=== PATIENT | female | born 1985 | race Caucasian/White ===

== ENCOUNTER → 2016-05-13 | Outpatient (CLI) | payer OTHER | END | disposition home or self-care (01) | LOC: C.PAPS 17:15 | PROVIDERS: ATTEND Obstetrics & Gynecology | DX: Z34.81 Encounter for supervision of other normal pregnancy, first trimester (principal) ==

== ENCOUNTER → 2016-05-13 | Outpatient (CLI) | payer OTHER ==
[2016-05-17 15:12] LABS: CHLAMYDIA TRACH RNA*** NOT DETECTED (NOT DETECTED); GC (NEIS GONORRHOEAE)RNA** NOT DETECTED (NOT DETECTED)
== END | disposition home or self-care (01) ==
LOC: C.LABSPEC 17:09
PROVIDERS: ATTEND Obstetrics & Gynecology
DX: Z34.81 Encounter for supervision of other normal pregnancy, first trimester (principal)

== ENCOUNTER → 2016-06-23 | Outpatient (CLI) | payer OTHER ==
[~2016-06-23] MED LIST: ACET-1256 PO; DOXY100C PO; LANS30CA12 PO; MTR600X PO; OXYC-57 PO; PRED20TA PO; PRED50TA PO; PRENTAB26 PO
[2016-06-23 18:18] LABS: URINE APPEARANCE CLEAR (CLEAR); URINE BILIRUBIN NEG (NEG); URINE COLOR YELLOW; URINE NITRITE NEG (NEG); URINE PH 7.5 (4.5-7.5); URINE SPECIFIC GRAVITY 1.026 (1.000-1.030); UROBILINOGEN NEG (NEG)
[2016-06-23 18:25] LABS: MANUAL MICROSCOPIC REQUIRED? NO; REVIEW REQ? NO
== END | disposition home or self-care (01) ==
LOC: C.LABSPEC 17:30
PROVIDERS: ATTEND Obstetrics & Gynecology
DX: Z34.81 Encounter for supervision of other normal pregnancy, first trimester (principal); R32 Unspecified urinary incontinence

== ENCOUNTER → 2016-08-05 | Outpatient (CLI) | payer OTHER ==
[2016-08-05 16:40] LABS: BASO % 0.3 %; BASO ABS # 0.03 K/uL (0-0.2); COMPLETE YES; EOS % 2.8 %; HEMATOCRIT 36.3 % (37-47); IG% 1.2 %; LYMPH % 15.8 %; MEAN CELL VOLUME 89.9 fL (80-100); MEAN CORPUSCULAR HEMOGLOBIN 29.5 pg (25-34); MEAN CORPUSCULAR HGB CONC 32.8 g/dl (32-36); MEAN PLATELET VOLUME 9.1 fL (7.4-10.4); MONO % 4.8 %; NEUT % 75.1 %; PLATELET COUNT 288 K/uL (130-400); RED BLOOD COUNT 4.04 M/uL (4.2-5.4); WHITE BLOOD COUNT 11.99 K/uL (4.8-10.8)
== END | disposition home or self-care (01) ==
LOC: C.LAB1850 15:41
PROVIDERS: ATTEND Obstetrics & Gynecology
DX: Z34.90 Encounter for supervision of normal pregnancy, unspecified, unspecified trimester (principal)

== ENCOUNTER → 2016-09-30 | Outpatient (CLI) | payer OTHER ==
[2016-09-30 15:33] LABS: HEMATOCRIT 35.8 % (37-47)
[2016-09-30 15:42] LABS: GTGD 50 Grams
[2016-09-30 16:19] LABS: URINE APPEARANCE CLOUDY (CLEAR); URINE BILIRUBIN NEG (NEG); URINE COLOR YELLOW; URINE EPITHELIAL CELL AUTO >30 /lpf (0-5); URINE NITRITE NEG (NEG); URINE PH >= 9.0 (4.5-7.5); URINE SPECIFIC GRAVITY 1.024 (1.000-1.030); UROBILINOGEN NEG (NEG)
[2016-09-30 16:22] LABS: MANUAL MICROSCOPIC REQUIRED? NO; REVIEW REQ? YES
== END | disposition home or self-care (01) ==
LOC: C.LAB1850 14:18
PROVIDERS: ATTEND Obstetrics & Gynecology
DX: Z34.90 Encounter for supervision of normal pregnancy, unspecified, unspecified trimester (principal)

== ENCOUNTER → 2016-11-25 | Outpatient (CLI) | payer OTHER | END | disposition home or self-care (01) | LOC: C.LABSPEC 16:14 | PROVIDERS: ATTEND Obstetrics & Gynecology | DX: Z34.03 Encounter for supervision of normal first pregnancy, third trimester (principal) ==

== ENCOUNTER 2016-12-31 04:19 | Inpatient (IN) | payer OTHER ==
[~2016-12-31] VITALS: Ht 157.5 cm; Wt 90.9 kg
[2016-12-31] MEDS ORDERED: LACTATED RINGER'S 1000ML 1,000 ML IV PRN (05:20)
[2016-12-31 05:56] LABS: HEMATOCRIT 34.8 % (37-47); MEAN CELL VOLUME 85.1 fL (80-100); MEAN CORPUSCULAR HEMOGLOBIN 28.4 pg (25-34); MEAN CORPUSCULAR HGB CONC 33.3 g/dl (32-36); PLATELET COUNT 267 K/uL (130-400); RED BLOOD COUNT 4.09 M/uL (4.2-5.4)
[2016-12-31 06:25] VITALS: Ht 157.5 cm; Wt 90.9 kg
[2016-12-31] MEDS ORDERED: CALCIUM CARBONATE 500 MG CHEWABLE ONE (06:38)
[2016-12-31] MEDS ORDERED: CALCIUM CARBONATE 500 MG CHEWABLE PO PRN (06:45)
[2016-12-31] MEDS ORDERED: NURSING VERBAL MED ORDER ONE (06:45)
[2016-12-31] MEDS ORDERED: ACET-1256 PO (06:48)
[2016-12-31] MEDS ORDERED: PRENTAB26 PO (06:48)
[2016-12-31] MEDS ORDERED: LANS30CA12 PO (06:48)
[2016-12-31] MEDS ORDERED: LACTATED RINGER'S 1000ML 500 ML IV PRN ×2 (08:27→20:37)
[2016-12-31] MEDS ORDERED: OXYTOCIN 30 UNITS/500ML NSS IV PRN (08:30)
[2016-12-31] MEDS: LACTATED RINGER'S 1000ML 1,000 ML IV SCH ×2 (08:34→18:22)
[2016-12-31] MEDS: RANITIDINE HCL 150 MG TAB PO SCH (09:43)
[2016-12-31] MEDS ORDERED: BUTORPHANOL TARTRATE 1 MG/ML VIAL IV PRN (14:45)
[2016-12-31] MEDS ORDERED: FENTANYL 2MCG/ML ROPIV 1.25MG/ML 100ML BAG EPI ONE (19:34)
[2016-12-31] MEDS ORDERED: BUPIVACAINE 0.25% 30 ML VIAL ONE (19:34)
[2016-12-31] MEDS ORDERED: EpHEDrine SULFATE INJ 50 MG/ML AMP ONE (19:34)
[2016-12-31] MEDS ORDERED: FENTANYL CITRATE INJ 50 MCG/1 ML 2 ML VIAL ONE (19:35)
[2016-12-31] MEDS ORDERED: NALOXONE HCL INJ 1 MG in SODIUM CHLORIDE 0.9% 1000ML 1,000 ML IV PRN ×4 (20:37)
[2016-12-31] MEDS ORDERED: NALBUPHINE HCL INJ 10 MG/ML AMP IV PRN (20:45)
[2016-12-31] MEDS ORDERED: NALOXONE HCL INJ 0.4 MG/1 ML VIAL/CARP IV PRN (20:45)
[2016-12-31] MEDS ORDERED: DiphenhydrAMINE HCL 50 MG/ML VIAL IV PRN (20:45)
[2016-12-31] MEDS ORDERED: ONDANSETRON INJ 2 MG/ML 2 ML VIAL IV PRN (20:45)
[2016-12-31] MEDS ORDERED: FENTANYL 2MCG/ML ROPIV 1.25MG/ML 100ML BAG EPI PRN (20:45)
[2016-12-31] MEDS ORDERED: EpHEDrine SULFATE INJ 50 MG/ML AMP IV PRN (20:45)
[2016-12-31] MEDS ORDERED: PROMETHAZINE HCL INJ 25 MG in SODIUM CHLORIDE 0.9% 50ML 50 ML IV PRN (20:45)
[2016-12-31] MEDS ORDERED: METOCLOPRAMIDE HCL INJ 20 MG in SODIUM CHLORIDE 0.9% 50ML 50 ML IV PRN (20:45)
[2017-01-01] VITALS (9 sets, daily range): BP systolic 116; BP diastolic 72; PULSE 95; TEMP 36.5; O2SAT 95–99
[2017-01-01] MEDS: RANITIDINE HCL 150 MG TAB PO SCH ×3 (00:33→19:45)
[2017-01-01] MEDS: LACTATED RINGER'S 1000ML 1,000 ML IV SCH (00:47)
[2017-01-01] MEDS ORDERED: LACTATED RINGER'S 1000ML 1,000 ML IV SCH ×2 (03:50→05:59)
[2017-01-01] MEDS ORDERED: CITRIC ACID/SODIUM CITRATE 15 ML UDC PO ONE (04:00)
[2017-01-01] MEDS ORDERED: CEFAZOLIN IV 2,000 MG in SYRINGE 0 ML IV STA (04:03)
--- NOTE | 2017-01-01 04:27 | HISTORY & PHYSICAL EXAMINATION ---
DATE OF ADMISSION: 12/31/2016 HISTORY OF PRESENT ILLNESS: Maureen presented to labor and delivery for Dr. Mcghee on the termite control technician of 12/31/2016 with premature rupture of membranes at term. She was 1 cm at that time. She required Pitocin augmentation when I came education reporter at 8:30 in the morning and did progress into a decent contraction pattern. Eventually she received an epidural and then had reached approximately 4 cm dilated, approximately 9:00 p.m. on 12/31/2016. Her heart rate tracing remained category 1; however, she only progressed to 5 cm by 3:30 in the morning despite adequate labor. There was also presence of molding and the baby also did not descend below spine to -1. At that stage, section was recommended and the patient agreed. HISTORY: This is her first , has gone complicated. Her due date was 9 days ago thus she is 41 weeks and 2 days. She is group B strep negative. Blood type O positive. MEDICAL HISTORY: Healthy. SURGICAL HISTORY: No major surgeries. FAMILY HISTORY: Negative. PHYSICAL EXAMINATION: VITAL SIGNS: Stable. She is afebrile. CHEST: Clear. Cardiovascular exam normal rate and rhythm. No audible murmur. ABDOMEN: Gravid. heart rate tones category 1. Cervix 5 cm, -1 station. molding present. IMPRESSION AND PLAN: Reviewed the option of continuing labor. I recommended as I feel she is not progressing and stands somewhat increased risk of infection with prolonged rupture of membranes. She agrees. We discussed risks including bleeding, infection, injury to bowel, bladder, ureter, vessels, deep vein thrombosis, pulmonary embolus. We discussed increased risks of infection with prolonged rupture of membranes. We will arrange for a low segment transverse section.
[2017-01-01] MEDS ORDERED: LIDOCAINE/EPINEPHRINE 2% 1:200,000 20 ML SDV ONE (04:42)
[2017-01-01] MEDS ORDERED: OXYTOCIN INJ 10 UNITS/ML VIAL ONE (04:42)
[2017-01-01] MEDS ORDERED: FENTANYL CITRATE INJ 50 MCG/1 ML 2 ML VIAL ONE (04:42)
[2017-01-01] MEDS ORDERED: MoRPHine SULFATE PF 1 MG/ML 10 ML AMP/VIAL ONE (04:42)
[2017-01-01] MEDS ORDERED: HYDROmorphone INJ 1 MG/ML SYR IV PRN (05:15)
[2017-01-01] MEDS ORDERED: ONDANSETRON INJ 2 MG/ML 2 ML VIAL IV PRN ×2 (05:15→23:30)
[2017-01-01] MEDS ORDERED: EpHEDrine SULFATE INJ 50 MG/ML AMP IV PRN (05:15)
[2017-01-01] MEDS ORDERED: PROMETHAZINE HCL INJ 12.5 MG in SODIUM CHLORIDE 0.9% 50ML 50 ML IV PRN (05:15)
[2017-01-01] MEDS ORDERED: FENTANYL CITRATE INJ 50 MCG/1 ML 2 ML VIAL IV PRN (05:15)
[2017-01-01] MEDS ORDERED: ATROPINE SULFATE 0.1 MG/ML 5ML SYR IV PRN (05:15)
[2017-01-01] MEDS ORDERED: ONDANSETRON INJ 2 MG/ML 2 ML VIAL ONE (05:31)
[2017-01-01] MEDS ORDERED: PHENYLEPHRINE HCL INJ 10 MG/ML VIAL ONE (05:31)
[2017-01-01] MEDS ORDERED: SENNA 8.6 MG TAB PO PRN (06:00)
[2017-01-01] MEDS ORDERED: SUPERCREAM 0.870 % 15GM JAR EXT PRN (06:00)
[2017-01-01] MEDS ORDERED: CEFAZOLIN IV 2,000 MG in DEXTROSE 5% 50ML 50 ML IV SCH (06:00)
[2017-01-01] MEDS ORDERED: PROMETHAZINE HCL INJ 25 MG in SODIUM CHLORIDE 0.9% 50ML 50 ML IV PRN (06:00)
[2017-01-01] MEDS ORDERED: BENZOCAINE 20% AER SPR 82.5 GM CAN EXT PRN (06:00)
[2017-01-01] MEDS ORDERED: LANOLIN OINT EXT PRN ×2 (06:00)
[2017-01-01] MEDS ORDERED: MAGNESIUM HYDROXIDE SUSP 30 ML UDC PO PRN (06:00)
[2017-01-01] MEDS ORDERED: HYDROCORTISONE ACETATE 25 MG SUPP PR PRN (06:00)
--- NOTE | 2017-01-01 06:01 | [facility] Post Operative Brief Note ---
Immediate Operative Summary Operative Date Jan 01, 2017. Pre-Operative Diagnosis FTP Post-Operative Diagnosis FTP Procedure(s) Performed Low segment transverse C/S Surgeon Triston Nursing Professor Surgeon(s) Kenton RN Estimated Blood Loss 600 ml Findings normal anatomy Specimens cord gases Drains Sinclair Anesthesia Epidural Complication(s) None Disposition L&D
--- NOTE | 2017-01-01 06:23 | Anesthesiology Progress Note ---
Anesthesia Post Op Note Date & Time Jan 01, 2017 at 06:23 Vital Signs Pain Intensity: 0.0 Notes Mental Status: alert / awake / arousable, participated in evaluation Pt Amnestic to Procedure: Yes Nausea / Vomiting: adequately controlled Pain: adequately controlled Airway Patency, RR, SpO2: stable & adequate BP & HR: stable & adequate Hydration State: stable & adequate Anesthetic Complications: no major complications apparent Doing well, VSS.
--- NOTE | 2017-01-01 06:23 | Anesthesia Procedure Note ---
Anesthesia Epidural Removal Nt Date & Time Jan 01, 2017 at 06:22 Vital Signs Pain Intensity: 0.0 Notes Mental Status: alert / awake / arousable, participated in evaluation Nausea / Vomiting: adequately controlled Pain: adequately controlled Airway Patency, RR, SpO2: stable & adequate BP & HR: stable & adequate Hydration State: stable & adequate Neuraxial Anesthesia: was administered Anesthetic Complications: no major complications apparent, pt satisfied with anesthetic care Epidural: removed without complications, with tip intact
[2017-01-01] MEDS ORDERED: MoRPHine SULFATE 2 MG/ML CARP IV PRN (06:30)
[2017-01-01] MEDS ORDERED: CONTINUE MEDICATION ONE (06:30)
[2017-01-01] MEDS ORDERED: MEPERIDINE HCL 25 MG/ML CARP IV PRN (06:30)
[2017-01-01] MEDS ORDERED: MoRPHine SULFATE PF 1 MG/ML 10 ML AMP/VIAL EPI PRN (06:30)
[2017-01-01] MEDS ORDERED: NO NARCOTICS OR SEDATIVES SCH (06:30)
[2017-01-01] MEDS ORDERED: DC INTRASPINAL MORPHINE PRN (06:30)
[2017-01-01] MEDS: KETOROLAC TROMETHAMINE 30 MG/ML VIAL IV. PRN ×2 (06:34→23:07)
--- NOTE | 2017-01-01 06:51 | OPERATIVE REPORT ---
DATE OF OPERATION: 01/01/2017 PREOPERATIVE DIAGNOSIS: Failure to progress in labor. POSTOPERATIVE DIAGNOSIS: Same. PROCEDURE: Low segment transverse section. SURGEON: Nicolas Goldstein MD IN STORE MARKETING REPRESENTATIVE: ZOFIA Fung ESTIMATED BLOOD LOSS: 600 mL FINDINGS: Normal anatomy. SPECIMENS: Cord gases. DRAINS: Sinclair catheter. ANESTHETIC: Epidural. COMPLICATIONS: None. DISPOSITION: Labor and delivery. Maureen had her epidural anesthesia increased to allow for section. Sinclair catheter placed by nurse. She was in the supine position, prepped and draped with a leftward tilt. Pickups with teeth were used to test the incision area. Scalpel used to make a low transverse Pfannenstiel incision dissecting down through subcutaneous fat to the fascia in the midline. Fascia cut laterally with curved Ocasio scissors and then released superiorly and inferiorly from the rectus muscles. Rectus muscles split. Peritoneal cavity entered in a superior location and then opening expanded to allow exposure. Bladder retractor placed. Metzenbaums used to dissect away the bladder flap and then a low transverse incision on the uterus with scalpel and then entry into the uterine cavity with a hemostat opening extended with the harvester operator's finger in the usual fashion. Baby delivered by flexion of the baby's head and then pressure on the abdomen. No difficulties with delivery. Live vigorous female infant. Mouth suctioned and nares. There was no nuchal cord. There was thin meconium. Cord gases obtained. Cord blood obtained. Placenta removed. IV Pitocin started. Please note 2 grams IV Ancef given preop as well. Uterus exteriorized and tone increased and improved. Uterus closed in the usual fashion, running 0 Monocryl locked and a second reinforcing 0 Monocryl nonlocked. After generous irrigation and suction of the cul-de-sac and bladder flap regions, uterus was placed back in the peritoneal cavity and found to be hemostatic. Retractors removed. Fascia closed with 0 Vicryl, subcutaneous fat irrigated and closed with 3-0 Vicryl, skin closed with 4-0 subcuticular Monocryl. Sponge and instrument counts correct at the end of the procedure and urine clear at the end of the procedure. I attest to the content of the Intraoperative Record and any orders documented therein. Any exception s are noted below.
[2017-01-01] MEDS: OXYTOCIN INJ 20 UNITS in LACTATED RINGER'S 1000ML 1,000 ML IV SCH ×2 (07:25→15:51)
[2017-01-01] MEDS: PRENATAL VITAMIN TAB PO SCH (08:00)
[2017-01-01] MEDS: DOCUSATE SODIUM 100 MG CAP PO SCH ×2 (08:00→19:45)
[2017-01-01] MEDS: SIMETHICONE 80 MG CHEW PO SCH ×4 (09:00→19:45)
[2017-01-01] MEDS ORDERED: DiphenhydrAMINE HCL 50 MG/ML VIAL IV PRN (23:30)
[2017-01-01] MEDS ORDERED: MEPERIDINE HCL 50 MG/ML CARP IV PRN ×2 (23:30)
[2017-01-01] MEDS ORDERED: OXYCODONE/ACETAMINOPHEN 5-325 TAB PO PRN (23:30)
[2017-01-01] MEDS ORDERED: ZOLPIDEM TARTRATE 5 MG TAB PO PRN (23:30)
[2017-01-01] MEDS ORDERED: KETOROLAC TROMETHAMINE 30 MG/ML VIAL IV. PRN (23:30)
[2017-01-02 00:20] VITALS: BP 123/78; PULSE 95; TEMP 37; O2SAT 97
[2017-01-02 04:50] VITALS: BP 111/60; PULSE 90; TEMP 37
--- NOTE | 2017-01-02 06:34 | OB/GYN Progress Note ---
TANNING SOLUTION MAKER Progress Note Date of Service Jan 02, 2017. Subjective conversation w/ patient, physical exam, chart review, lab review Ambulation: ambulating normally Voiding: no voiding problems Passing Gas: Yes Diet Tolerance: Regular Diet Lochia: Small Feeding Type: Breast Feeding Pain: 8/10 when stands Review of Systems Constitutional: No fever Respiratory: No shortness of breath Cardiac: No chest pain Abdomen: No nausea, No vomiting Female : No dysuria Objective Vital Signs Date Time Temp Pulse Resp B/P (MAP) Pulse Ox O2 Delivery O2 Flow Rate FiO2 01/02/17 04:50 37.0 90 18 111/60 01/02/17 00:20 37.0 95 18 123/78 01/02/17 00:20 97 Room Air 01/01/17 23:00 18 97 01/01/17 22:00 16 99 01/01/17 21:00 16 98 01/01/17 20:13 36.5 95 16 116/72 01/01/17 20:13 95 Room Air 01/01/17 20:00 16 98 01/01/17 19:00 16 98 01/01/17 18:00 16 99 01/01/17 17:00 16 98 01/01/17 16:00 98 Room Air 01/01/17 16:00 16 98 01/01/17 15:30 Room Air Physical Exam General Appearance: WELL-APPEARING Respiratory/Chest: lungs clear, normal breath sounds Cardiovascular: regular rate, rhythm Abdomen: normal bowel sounds, soft Fundus: Firm, Relation to Umbilicus (2 FB below umbilicus) Incision Description: Clean, Dry & Intact Extremities: non-tender, no pedal edema Laboratory Results Last 24 Hours Test 01/02/17 06:00 Medications Current Inpatient Medications Medications (Trade) Dose Ordered Sig/Elizabeth Route Start Time Stop Time Status Last Admin Dose Admin Calcium Carbonate (Tums Chew Tab) 1,000 mg Q4H PRN PO 12/31/16 06:45 01/30/17 06:44 Ranitidine HCl (zANTac TAB) 150 mg BID PO 12/31/16 09:00 01/30/17 08:59 01/01/17 19:45 150 MG Oxytocin 20 units/ Lactated Ringer's 1,002 ml @ 125 mls/hr Q8H1M IV 01/01/17 05:59 01/31/17 05:58 01/01/17 15:51 125 MLS/HR Lactated Ringer's 1,000 ml @ 125 mls/hr Q8H IV 01/01/17 05:59 01/31/17 05:58 Ketorolac Tromethamine (Toradol Inj) 30 mg Q6H PRN IV. 01/01/17 23:30 01/06/17 23:29 01/02/17 05:41 30 MG Meperidine HCl (Demerol Inj) 50 mg Q4H PRN IV 01/01/17 23:30 01/15/17 23:29 Meperidine HCl (Demerol Inj) 75 mg Q4H PRN IV 01/01/17 23:30 01/15/17 23:29 Oxycodone/ Acetaminophen (Percocet 5-325mg Tab) 1 tab Q4H PRN PO 01/01/17 23:30 01/15/17 23:29 Oxycodone/ Acetaminophen (Percocet 5-325mg Tab) 2 tab Q4H PRN PO 01/01/17 23:30 01/15/17 23:29 Ibuprofen (Motrin Tab) 600 mg Q4H PRN PO 01/01/17 06:00 01/31/17 05:59 Promethazine HCl 25 mg/Sodium Chloride 51 ml @ 204 mls/hr Q4H PRN IV 01/01/17 06:00 01/31/17 05:59 Ondansetron HCl (Zofran Inj) 4 mg Q4H PRN IV 01/01/17 23:30 01/31/17 23:29 Prenat Multivit/ Publishing Director/Iron/Folic Ac ( Vitamin Tab) 1 tab DAILY PO 01/01/17 08:00 01/31/17 07:59 Bisacodyl (Dulcolax Tab) 5 mg HS ONCE PO 01/02/17 22:00 01/02/17 22:01 Bisacodyl (Dulcolax Supp) 10 mg PRN PRN MI 01/03/17 22:45 02/02/17 22:44 Docusate Sodium (coLACE CAP) 100 mg BID PO 01/01/17 08:00 01/31/17 07:59 01/01/17 19:45 100 MG Magnesium Hydroxide (Milk Of Magnesia Susp) 30 ml HS PRN PO 01/01/17 06:00 01/31/17 05:59 Cocaine HCl (Supercream 0.870% Cr) BID PRN EXT 01/01/17 06:00 01/15/17 05:59 Lanolin (Lanolin Oint) PRN PRN EXT 01/01/17 06:00 01/31/17 05:59 Hydrocortisone Acetate (Anusol Hc Supp) 25 mg BID PRN MI 01/01/17 06:00 01/31/17 05:59 Benzocaine (Dermoplast Aero Spr) 1 appln PRN PRN EXT 01/01/17 06:00 01/31/17 05:59 Zolpidem Tartrate (Ambien Tab) 5 mg HSZ PRN PO 01/01/17 23:30 01/31/17 23:29 Simethicone (Mylicon Chew Tab) 80 mg QID PO 01/01/17 09:00 01/31/17 08:59 01/01/17 19:45 80 MG Diphenhydramine HCl (Benadryl Cap) 25 mg QID PRN PO 01/01/17 23:30 01/31/17 23:29 Diphenhydramine HCl (Benadryl Inj) 25 mg QID PRN IV 01/01/17 23:30 01/31/17 23:29 Senna (Senokot Tab) 17.2 mg HS PRN PO 01/01/17 06:00 01/31/17 05:59 Morphine Sulfate (Duramorph Pf Inj) TODAY PRN EPI 01/01/17 06:30 Assessment and Plan Post-Op Day Number: 1 Continue Routine Care: A/P: This is a 31 y/o female, , s/p day 1. She is ambulating and clinically stable. Plan: - Vitals signs are reviewed and WNL (Tmax 37 ) - Last Hgb is 11.6. This AM pending - Blood type O+, GBS neg, Rubella Immune - Routine postoperative care - Encourage ambulation, monitor and control pain with medication as needed, continue with regular diet as tolerated and monitor lochia - Stool softeners and sitz bath recommended - Encourage breast feeding and educate about breast feeding Resident Physician Supervision Note: I interviewed and examined the patient. Discussed with Dr. Shah and agree with findings and plan as documented in the note. Any exceptions or clarifications are listed here: [None] Documented By: Nicolas Goldstein Resident Involvement: Resident Care Provided Care Provided: OB Delivery
[2017-01-02 06:48] LABS: BASO % 0.2 %; BASO ABS # 0.03 K/uL (0-0.2); COMPLETE YES; EOS % 1.8 %; HEMATOCRIT 28.3 % (37-47); IG% 0.4 %; LYMPH % 13.8 %; LYMPH ABS # 1.87 K/uL (1.2-3.4); MEAN CELL VOLUME 85.2 fL (80-100); MEAN CORPUSCULAR HGB CONC 32.9 g/dl (32-36); MEAN PLATELET VOLUME 9.2 fL (7.4-10.4); MONO % 7.9 %; NEUT % 75.9 %; PLATELET COUNT 210 K/uL (130-400); RED BLOOD COUNT 3.32 M/uL (4.2-5.4); WHITE BLOOD COUNT 13.56 K/uL (4.8-10.8)
[2017-01-02] MEDS: PRENATAL VITAMIN TAB PO SCH (07:35)
[2017-01-02] MEDS: RANITIDINE HCL 150 MG TAB PO SCH ×2 (07:35→19:47)
[2017-01-02] MEDS: DOCUSATE SODIUM 100 MG CAP PO SCH ×2 (07:35→19:47)
[2017-01-02 07:36] VITALS: BP 109/68; PULSE 90; TEMP 36.9
[2017-01-02] MEDS: SIMETHICONE 80 MG CHEW PO SCH ×4 (07:36→19:47)
[2017-01-02] MEDS: OXYCODONE/ACETAMINOPHEN 5-325 TAB PO PRN ×3 (12:11→21:33)
[2017-01-02] MEDS: IBUPROFEN 600 MG TAB PO PRN ×3 (12:12→21:33)
[2017-01-02 15:00] VITALS: BP 109/71; PULSE 94; TEMP 36.7; O2SAT 94
[2017-01-02] MEDS ORDERED: BISACODYL 5 MG TABEC PO ONE (22:00)
[2017-01-02 23:35] VITALS: BP 108/69; PULSE 85; TEMP 36.8; O2SAT 96
[2017-01-03] MEDS: OXYCODONE/ACETAMINOPHEN 5-325 TAB PO PRN ×2 (05:53→12:34)
[2017-01-03] MEDS: IBUPROFEN 600 MG TAB PO PRN ×2 (05:54→12:34)
--- NOTE | 2017-01-03 06:52 | OB/GYN Progress Note ---
EXECUTIVE PRODUCER Progress Note Date of Service Jan 03, 2017. Subjective conversation w/ patient, physical exam, chart review, lab review Ambulation: ambulating normally Voiding: no voiding problems Passing Gas: Yes Diet Tolerance: Regular Diet Lochia: Small Feeding Type: Breast Feeding Pain: 5/10 Review of Systems Constitutional: No fever, No chills Respiratory: No shortness of breath Cardiac: No chest pain Abdomen: No nausea, No vomiting Female : No dysuria Objective Vital Signs Date Time Temp Pulse Resp B/P (MAP) Pulse Ox O2 Delivery O2 Flow Rate FiO2 01/02/17 23:35 96 Room Air 01/02/17 23:35 36.8 85 18 108/69 01/02/17 15:00 36.7 94 18 109/71 01/02/17 15:00 94 Room Air 01/02/17 07:45 Room Air 01/02/17 07:36 36.9 90 20 109/68 Physical Exam General Appearance: NO APPARENT DISTRESS Respiratory/Chest: lungs clear, normal breath sounds Cardiovascular: regular rate, rhythm Abdomen: normal bowel sounds, non tender, soft Fundus: Firm, Relation to Umbilicus (3 FB below) Incision Description: Clean, Dry & Intact Extremities: non-tender, no pedal edema Laboratory Results Last 24 Hours Test 01/03/17 06:37 Assessment and Plan Post-Op Day Number: 2 Continue Routine Care: A/P: This is a 31 y/o female, , s/p [] day 2. She is ambulating and clinically stable. Plan: - Vitals signs are reviewed and WNL (Tmax 37 ) - Last Hgb is 9.3 - Blood type O+, GBS neg, Rubella Immune - No signs of depression. - Routine care - Discussed resting, feeding, pain control, mastitis, control, follow up in 6 weeks and reasons to call sooner, if necessary. - Continue with pain medication as needed, and continue vitamins. - Encourage breast feeding and educate about breast feeding - Patient understands and keen for home. - Plan to discharge home Resident Physician Supervision Note: I interviewed and examined the patient. Discussed with Dr. Shah and agree with findings and plan as documented in the note. Any exceptions or clarifications are listed here: Patient desires d/c home. reviewed instructions and pain meds. She does have scripts on [place] PDMP that I did see but ok to give small amount percocet due to surgery. She is aware of followup in 6wks and instructions. incision c/d/i, breast feeding,nipples sore. Documented By: Faith Meade Resident Involvement: Resident Care Provided Care Provided: OB Delivery
--- NOTE | 2017-01-03 06:53 | Discharge Instructions ---
Discharge Instructions Date of Service Jan 03, 2017. Admission Reason for Admission: LABOR Discharge Discharge Diagnosis / Problem: after c section delivery Discharge Goals Goal(s): Routine recovery after delivery Medications Continue Dispensed Medications: supercream, dermaplast, tucks, lansinoh Activity Recommendations Activity Limitations: per Instructions/Follow-up section . Instructions / Follow-Up Instructions / Follow-Up ACTIVITY RECOMMENDATIONS: * Gradual return to full activity over the next 2-3 weeks. * No lifting - nothing heavier than baby over the next 2-3 weeks. * Do not engage in vigorous exercise, sexual activity or sports until cleared by your physician. * Do not drive or operate any motorized equipment until cleared by your physician. * You may shower/bathe daily. MEDICATIONS: For discomfort or pain, you may use Acetaminophen (Tylenol), Ibuprofen (Advil), or Naproxen (Aleve) following the package directions. For constipation you may use Colace following the package directions. BREAST CARE: If you are not breast feeding: * Wear a supportive bra 24 hours a day for one to two weeks. * Avoid stimulating your breasts and nipples as much as possible during the first few weeks after delivery. * When taking a shower, have the warm water hit your back, not breasts. * When your breasts feel full, apply ice packs. Usually three to four times a day helps ease the discomfort. * Take a mild pain medication (Tylenol / Motrin) when you are uncomfortable. If breast feeding: * Use breast milk to lubricate nipples. Lansinoh cream may be used for sore nipples. You do not need to remove cream prior to breast feeding. If using a different brand of cream, check the label for directions regarding removal of cream prior to nursing. * Wear a supportive bra. * If having problems with breasts or breast feeding, call a senior sustainability consultant or your health care provider. SPECIAL CARE INSTRUCTIONS: When you are discharged from the hospital, it is important for you to follow the instructions listed below: * During the first week at home, you should be able to care for yourself and your baby. In addition, the usual light household activities are encouraged. * Limit your activities to the way you feel. Do not try to clean the house or move furniture. Be sensible. * If you actively engage in sports and have done so up until the time of your delivery, you may resume these activities as soon as you feel able. This may take up to one month or even longer. Use good judgment. * Continue to take your vitamins for at least six weeks after the of your baby. * Your diet need not be limited unless you were on a special diet before your delivery. Breast-feeding mothers need around 2500 calories per day and at least 64-80 ounces of fluid per day (8 to 10 glasses). * You should eat foods from the four major food groups. Crash diets or fad diets are to be avoided. Eating lean meats, fresh fruits and vegetables, low-fat dairy products, high fiber foods and a regular exercise program, will help you get back to your pre- weight without putting your health at risk. * Constipation is sometimes a problem after delivery. Take a mild laxative as needed. If breast feeding, Milk of Magnesia is acceptable to use. You may use a suppository or Fleets enema. * A daily shower or tub bath is suggested. Wash incision daily with warm soapy water and pat dry. It doesn't need to be covered unless drainage is present. * A bloody vaginal discharge will usually continue until around four weeks . A small amount of bleeding may continue for as long as six weeks. Vaginal discharge changes from the bright red bleeding after delivery to pink then brownish and finally yellowish-pink before becoming white and disappearing. * Bleeding may increase with activity. Your first period may come in 4-8 weeks. If you are breast feeding, your period may be delayed even longer. * [place] (sex) can begin whenever both you and your partner feel comfortable and do not have any form of genital infection. It is recommended that you wait at least six weeks for internal and external healing to occur. If you have questions, please talk to your health care practitioner. A condom should be used to prevent infection and . * Foreplay, gentle intercourse and lubrication is very important the first several times to prevent pain. A water-based lubricant such as K-Y jelly or Astroglide may be used. * If you have RH negative blood and your baby is RH positive, you will receive RHOGAM by injection prior to discharge. The nurse will give you a card to keep with you that has the date and place that you received RHOGAM after delivery. * During your care, you had a Rubella screen done to check for the presence of rubella antibodies in your blood. If your test was negative, you will receive a Rubella vaccine prior to discharge. This vaccine may cause a fever, soreness at the injection site and flu-like symptoms. If these symptoms persist, notify your health care practitioner. is not advised for one month after a Rubella vaccine. * Verbalizes understanding of car seat law as reviewed with patient nursing. * Car Seat hand-out given and reviewed with patient by nursing. * Shaken baby information reviewed with patient by nursing. Call you doctor if: * Heavy bleeding (saturating several pads an hour) or passing clots the size of your fist. * A fever >101 degrees F (38.3 degrees C) on two occasions four hours apart and /or chills. * Unusual pain in the pelvic or vaginal areas. * Call the doctor for any increased redness, drainage or swelling around the incision and any pain unrelieved by prescribed pain medication. * "Baby Blues" lasting longer than two weeks. If you have any questions or concerns, call your health care practitioner at . FOLLOW UP VISIT: * Please call the office at to schedule a 6 week examination. It is important you keep this appointment. It is important for you to make arrangements for either yearly or twice yearly check-ups thereafter. Current Hospital Diet Patient's current hospital diet: Regular OB Diet Discharge Diet Recommended Diet: Regular Diet Procedures Procedures Performed: Low segment transverse C/S Pending Studies Studies pending at discharge: no Medical Emergencies . Who to Call and When: Medical Emergencies: If at any time you feel your situation is an emergency, please call [phone] immediately. . Non-Emergent Contact Non-Emergency issues call your: Marine Pilot . . "Provider Documentation" section prepared by Mason Shah. . VTE Core Measure Inpt VTE Proph given/why not?: SCD's
[2017-01-03] MEDS ORDERED: MTR600X PO (07:32)
[2017-01-03] MEDS ORDERED: OXYC-57 PO (07:32)
[2017-01-03] MEDS: PRENATAL VITAMIN TAB PO SCH (08:28)
[2017-01-03] MEDS: SIMETHICONE 80 MG CHEW PO SCH ×2 (08:28→12:33)
[2017-01-03] MEDS: DOCUSATE SODIUM 100 MG CAP PO SCH (08:28)
[2017-01-03] MEDS: RANITIDINE HCL 150 MG TAB PO SCH (08:28)
[2017-01-03 08:30] VITALS: BP 133/84; PULSE 89; TEMP 36.8
[2017-01-03 11:00] VITALS: BP_DIAS 84; PULSE 89; TEMP 36.8
[2017-01-03] MEDS ORDERED: BISACODYL 10 MG SUPP PR PRN (22:45)
--- NOTE | 2017-01-05 08:42 | DISCHARGE SUMMARY ---
HISTORY AND HOSPITAL COURSE: Maureen had a section. Operative note dictated on January 01. Her course in hospital was uncomplicated. By postop day 2, which was January 03, she met criteria. At that time, she was ambulating well, tolerating an oral diet, had pain well controlled with oral pain medication and wished to go home. PHYSICAL EXAMINATION: VITAL SIGNS: Stable. She was afebrile. CHEST: Clear. CARDIOVASCULAR: Normal rate and rhythm. ABDOMEN: Nontender, soft. Fundus firm. Incision clean, dry and intact. EXTREMITIES: Nontender. IMPRESSION AND PLAN: Postop day 2 from section, hemoglobin 9.1, on discharge given pain medication and told to follow up in the office.
== END 2017-01-03 12:55 | disposition home or self-care (01) | DRG 766 ==
LOC: C.OPB 04:19 → C.LD 04:19 → C.OPB 05:22 → C.OBG 01-01 15:53
PROVIDERS: ADMIT Obstetrics & Gynecology; ATTEND Obstetrics & Gynecology
PROC: 10D00Z1 Extraction of Products of Conception, Low, Open Approach (ICD-10-PCS; principal; 2017-01-01 05:08)
DX: O62.1 Secondary uterine inertia (principal); O42.02 Full-term premature rupture of membranes, onset of labor within 24 hours of rupture; Z3A.41 41 weeks gestation of pregnancy; Z37.0 Single live birth

== ENCOUNTER 2017-01-22 02:16 | Emergency (ER) | payer OTHER ==
[~2017-01-22] VITALS: Ht 160 cm; Wt 82.9 kg
[~2017-01-22 02:16] MED LIST changes: -DOXY100C PO; -PRED20TA PO; -PRED50TA PO
[2017-01-22 02:28] VITALS: TEMP 36.7; Ht 160 cm; Wt 82.9 kg
[2017-01-22] MEDS ORDERED: METHYLPREDNISOLONE 125 MG VIAL IV STA (02:43)
[2017-01-22 03:04] LABS: BASO % 0.1 %; BASO ABS # 0.01 K/uL (0-0.2); COMPLETE YES; EOS % 1.8 %; HEMATOCRIT 37.4 % (37-47); IG% 0.1 %; LYMPH % 34.3 %; LYMPH ABS # 2.85 K/uL (1.2-3.4); MEAN CELL VOLUME 84.8 fL (80-100); MEAN CORPUSCULAR HEMOGLOBIN 27.9 pg (25-34); MEAN CORPUSCULAR HGB CONC 32.9 g/dl (32-36); MONO % 3.6 %; NEUT % 60.1 %; PLATELET COUNT 406 K/uL (130-400); RED BLOOD COUNT 4.41 M/uL (4.2-5.4)
[2017-01-22 03:23] LABS: BUN/CREATININE RATIO 21.4 (10-20); CREATININE 0.71 mg/dl (0.60-1.20); POTASSIUM 3.4 mmol/L (3.5-5.1)
[2017-01-22 03:26] LABS: ALB/GLOB RATIO 0.9 (0.9-2)
[2017-01-22 04:06] LABS: LYME DISEASE AB IGG NEG (NEG); LYME DISEASE AB IGM NEG (NEG)
[2017-01-22] MEDS ORDERED: DiphenhydrAMINE HCL 50 MG/ML VIAL IV STA (04:13)
[2017-01-22] MEDS ORDERED: PRED50TA PO (04:15)
[2017-01-22] MEDS ORDERED: BENADRYL HOME PACK 25 MG TAB ONE (04:23)
[2017-01-22] MEDS ORDERED: NURSING VERBAL MED ORDER ONE (04:30)
[2017-01-22 04:34] VITALS: BP 130/61; PULSE 94; O2SAT 97
--- NOTE | 2017-01-22 22:36 | EMERGENCY ROOM VISIT NOTE ---
History First contact with patient: 02:35 Chief Complaint: BITE Stated Complaint: AFFECTION FROM BITES History of Present Illness The patient is a 31 year old female who presents to the Emergency Room with complaints of worsening rash of her right leg and right arm. The patient states that she was walking through the house yesterday and believes that she may have been bitten by something. She states that when she got home she looked at her leg and noticed a small area of redness. She went to work today, and states that it has increased in size, and now also includes right upper arm. The patient is pruritic in these areas. She is not having fever or chills. She did take Benadryl about 4 hours ago which did somewhat improve the itching. The patient did not see a tick or other insect. She is not having difficulty with throat pain, throat swelling, coughing, wheezing, or abdominal pain. She rates her discomfort a 4/10. Review of Systems More than 10 systems were reviewed and otherwise negative with the exception of history of present illness. Past Medical/Surgical History Medical Problems: (1) with 41 completed weeks gestation (2) Rupture of membranes with meconium present Family History No pertinent family history Social History Smoking Status: Never Smoker Occupation Status: employed Current/Historical Medications Scheduled Multivit/Min/Iron/Fol Ac/Pren ( Vitamin), 1 TAB PO DAILY Prednisone (Prednisone), 50 MG PO DAILY Physical Exam Vital Signs Date Time Temp Pulse Resp B/P (MAP) Pulse Ox O2 Delivery O2 Flow Rate FiO2 01/22/17 04:34 94 20 130/61 97 01/22/17 03:50 84 16 96/52 98 Room Air 01/22/17 02:28 36.7 93 18 127/77 98 Room Air Physical Exam VITALS: Vitals are noted on the nurse's note and reviewed by myself. Vital signs stable. GENERAL: Well-developed, well-nourished, white female, who is in no acute distress and resting comfortably. Patient is cooperative with the examination. MOUTH: Mucous membranes moist. Tonsils are not enlarged. Pharynx without erythema, blood, or exudate. Uvula midline. Airway patent. NECK: Supple without nuchal rigidity. No lymphadenopathy. No thyromegaly. Cervical spine is nontender. HEART: Regular rate and rhythm without murmurs gallops or rubs. LUNGS: Clear to auscultation bilaterally without wheezes, rales or rhonchi. No retractions or accessory muscle use. ABDOMEN: Positive normal bowel sounds x 4. Soft, nontender, without masses or organomegaly. No guarding or rebound tenderness. SKIN: The skin was with noted rash that appears like large urticarial wheals best appreciated on the right anterior thigh and right lateral arm. Medical Decision & Procedures Laboratory Results 01/22/17 02:55 Red Blood Count 4.41, Mean Corpuscular Volume 84.8, Mean Corpuscular Hemoglobin 27.9, Mean Corpuscular Hemoglobin Concent 32.9, Mean Platelet Volume 9.0, Neutrophils (%) (Auto) 60.1, Lymphocytes (%) (Auto) 34.3, Monocytes (%) (Auto) 3.6, Eosinophils (%) (Auto) 1.8, Basophils (%) (Auto) 0.1, Neutrophils # (Auto) 4.98, Lymphocytes # (Auto) 2.85, Monocytes # (Auto) 0.30, Eosinophils # (Auto) 0.15, Basophils # (Auto) 0.01 01/22/17 02:55 Test 01/22/17 02:55 White Blood Count 8.30 K/uL (4.8-10.8) Red Blood Count 4.41 M/uL (4.2-5.4) Hemoglobin 12.3 g/dL (12.0-16.0) Hematocrit 37.4 % (37-47) Mean Corpuscular Volume 84.8 fL (80-100) Mean Corpuscular Hemoglobin 27.9 pg (25-34) Mean Corpuscular Hemoglobin Concent 32.9 g/dl (32-36) Platelet Count 406 K/uL (130-400) Mean Platelet Volume 9.0 fL (7.4-10.4) Neutrophils (%) (Auto) 60.1 % Lymphocytes (%) (Auto) 34.3 % Monocytes (%) (Auto) 3.6 % Eosinophils (%) (Auto) 1.8 % Basophils (%) (Auto) 0.1 % Neutrophils # (Auto) 4.98 K/uL (1.4-6.5) Lymphocytes # (Auto) 2.85 K/uL (1.2-3.4) Monocytes # (Auto) 0.30 K/uL (0.11-0.59) Eosinophils # (Auto) 0.15 K/uL (0-0.5) Basophils # (Auto) 0.01 K/uL (0-0.2) RDW Standard Deviation 44.4 fL (36.4-46.3) RDW Coefficient of Variation 14.3 % (11.5-14.5) Immature Granulocyte % (Auto) 0.1 % Immature Granulocyte # (Auto) 0.01 K/uL (0.00-0.02) Anion Gap 11.0 mmol/L (3-11) Est Creatinine Clear Calc Drug Dose 118.1 ml/min Estimated GFR () 132.5 Estimated GFR (Non- 114.3 BUN/Creatinine Ratio 21.4 (10-20) Calcium Level 9.0 mg/dl (8.5-10.1) Total Bilirubin 0.2 mg/dl (0.2-1) Aspartate Amino Transf (AST/SGOT) 13 U/L (15-37) Alanine Aminotransferase (ALT/SGPT) 22 U/L (12-78) Alkaline Phosphatase 110 U/L (45-117) Total Protein 7.5 gm/dl (6.4-8.2) Albumin 3.5 gm/dl (3.4-5.0) Globulin 4.0 gm/dl (2.5-4.0) Albumin/Globulin Ratio 0.9 (0.9-2) Lyme Disease IgG Antibody NEG (NEG) Lyme Disease IgM Antibody NEG (NEG) Medications Administered Medications (Trade) Dose Ordered Sig/Elizabeth Route Start Time Stop Time Status Last Admin Dose Admin Methylprednisolone Sodium Succinate (Solu-Medrol IV) 125 mg NOW STAT IV 01/22/17 02:43 01/22/17 02:44 DC 01/22/17 02:55 125 MG Diphenhydramine HCl (Benadryl Inj) 25 mg NOW STAT IV 01/22/17 04:13 01/22/17 04:14 DC 01/22/17 04:19 25 MG Diphenhydramine HCl (diphenhydrAMINE 25MG HOME PACK) 1 homepack STK-MED ONCE .ROUTE 01/22/17 04:23 01/22/17 04:24 DC 01/22/17 04:29 1 HOMEPACK ED Course Physical exam and history were performed. Nursing notes, EMR, and Medication List were personally reviewed. Patient appears to have a rash on her right anterior leg and right lateral arm. His does not appear to be distinctly infectious, but she states her symptoms started after walking in the house yesterday. IV access was established and labs were obtained. The patient was given IV Solu-Medrol and IV Benadryl here in the department. The patient does not have a significantly elevated white blood cell count, gross anemia of anemia, or significant electrolyte imbalance. Lyme disease screen is negative. The patient did have improvement of her itching after the above interventions. On repeat exam she did have some clearing of her rash with treatment, but not complete resolution. The patient was monitored for a few hours and did not have any worsening of her symptoms. I do feel that she is stable for discharge home and will be given a course of steroids. She is to follow with her primary care physician for further care and management. She is otherwise welcome back to the ER with any new, worsening, or concerning symptoms. The chart was completed utilizing [employer] Speech Voice Recognition Software. Grammatical errors, random word insertions, pronoun errors, and incomplete sentences are an occasional consequence of this system due to software limitations, ambient noise, and hardware issues. Any formal questions or concerns about the content, text, or information contained within the body of this dictation should be directly addressed to the provider for clarification. . Medical Decision Differential diagnosis: Etiologies such as allergic reaction, anaphylaxis, urticaria, Marshall-Otoniel syndrome, toxic epidermal necrolysis, erythema multiforme, cellulitis, as well as others were entertained. Impression Primary Impression: Rash and nonspecific skin eruption Departure Information Dispostion Home / Self-Care Condition GOOD Prescriptions Prednisone (Prednisone) 50 Mg Tab 50 MG PO DAILY for 4 Days, #4 TAB Prov: Conner Jean PA-C 01/22/17 Forms HOME CARE DOCUMENTATION FORM, IMPORTANT VISIT INFORMATION Patient Instructions My [facility] Additional Instructions You were seen and evaluated today on an emergency basis only. This is not a substitute for, or an effort to provide, complete comprehensive medical care. It is not possible to recognize and treat all injuries or illnesses in a single emergency department visit. For this reason it is recommended that you followup with your primary care physician on Monday for recheck of your condition. Take prednisone as prescribed for the next 4 days You may use [id number] Benadryl 25-50 mg every 6 hours for additional relief You are welcome to return to the emergency department anytime with new, worsening, or concerning symptoms.
== END 2017-01-22 04:35 | disposition home or self-care (01) ==
LOC: C.EDB 02:17
DX: R21 Rash and other nonspecific skin eruption (principal)

== ENCOUNTER → 2017-03-31 | Outpatient (CLI) | payer OTHER ==
[~2017-03-31] MED LIST changes: -ACET-1256 PO; -LANS30CA12 PO; -MTR600X PO; -OXYC-57 PO; +PRED20TA PO
== END | disposition home or self-care (01) ==
LOC: C.LAB1850 09:42
PROVIDERS: ATTEND Internal Medicine Pulmonary Disease
DX: L50.9 Urticaria, unspecified (principal)

== ENCOUNTER → 2017-05-16 | Outpatient (CLI) | payer OTHER | END | disposition home or self-care (01) | LOC: C.PAPS 13:36 | PROVIDERS: ATTEND Obstetrics & Gynecology | DX: Z12.4 Encounter for screening for malignant neoplasm of cervix (principal) ==

== ENCOUNTER → 2017-07-19 | Outpatient (CLI) | payer OTHER | END | disposition home or self-care (01) | LOC: C.LABSPEC 13:22 | PROVIDERS: ATTEND Physician Assistant | DX: R39.9 Unspecified symptoms and signs involving the genitourinary system (principal); L29.8 Other pruritus ==

== ENCOUNTER 2020-02-10 05:33 | Inpatient (IN) ==
[2020-02-10] MEDS ORDERED: LACTATED RINGER'S 1,000 ML IV SCH ×2 (06:00→09:15)
[2020-02-10] MEDS ORDERED: CITRIC ACID/SODIUM CITRATE 15 ML UDC PO SCH (06:00)
[2020-02-10] MEDS ORDERED: ceFAZolin 3,000 MG in DEXTROSE 5% 50 ML IV SCH (06:00)
[2020-02-10 06:08] LABS: Appearance Urine Clear (Clear); Bilirubin Urine Negative (Negative); Blood Urine Negative (Negative); Color Urine Yellow; Glucose Urine UA Negative (Negative); Ketones Urine Negative (Negative); Leukocyte Esterase Urine Negative (Negative); Nitrite Urine Negative (Negative); Protein Urine Negative (Negative); Specific Gravity Urine 1.023 (1.000-1.030); Urobilinogen Urine Negative (Negative)
[2020-02-10 06:21] LABS: Basophils # (auto) 0.02 K/uL (0-0.2); Basophils % (auto) 0.2 %; Eosinophils # (auto) 0.26 K/uL (0-0.5); Eosinophils % (auto) 2.4 %; Hematocrit (blood only) 34.3 % (37-47); Hemoglobin 11.1 g/dL (12.0-16.0); Immature Granulocytes # (auto) 0.08 K/uL (0.00-0.02); Immature Granulocytes % (auto) 0.7 %; Lymphocytes # (auto) 2.32 K/uL (1.2-3.4); Lymphocytes % (auto) 21.2 %; Mean Corpuscular Hemoglobin 27.5 pg (25-34); Mean Corpuscular Hgb Conc 32.4 g/dL (32-36); Mean Corpuscular Volume 84.9 fL (80-100); Monocytes % (auto) 6.4 %; Neutrophils # (auto) 7.54 K/uL (1.4-6.5); Neutrophils % (auto) 69.1 %; Platelet Count 289 K/uL (130-400); RDW Coefficient of Variation 13.3 % (11.5-14.5); RDW Standard Deviation 41.2 fL (36.4-46.3); Red Blood Count 4.04 M/uL (4.2-5.4); White Blood Count 10.92 K/uL (4.8-10.8)
[2020-02-10] MEDS ORDERED: MoRPHine SULFATE PF 1 MG/ML 10 ML AMP/VIAL ONE (06:43)
[2020-02-10] MEDS ORDERED: fentaNYL citrate 100 MCG/2 ML VIAL ONE (06:43)
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
--- NOTE | 2020-02-10 07:14 | History & Physical Bridge Note ---
Date of Service February 10, 2020 History & Physical Bridge Note I have examined the patient, reviewed the History & Physical and in the interval since the performance of the History & Physical I have noted the following changes of clinical significance: no changes noted
[2020-02-10] MEDS ORDERED: ePHEDrine sulfate 50 MG/ML SYR ONE (08:24)
[2020-02-10] MEDS ORDERED: PHENYLEPHRINE HCL 10 MG/ML VIAL ONE (08:24)
[2020-02-10] MEDS ORDERED: OXYTOCIN 10 UNITS/ML VIAL ONE (08:24)
[2020-02-10] MEDS ORDERED: ONDANSETRON INJ 2 MG/ML 2 ML VIAL ONE (08:25)
[2020-02-10] MEDS ORDERED: NALOXONE HCL 0.4 MG/1 ML VIAL/CARP IV PRN (08:34)
[2020-02-10] MEDS ORDERED: MoRPHine SULFATE 2 MG/ML CARP IV PRN (08:34)
[2020-02-10] MEDS ORDERED: MoRPHine SULFATE PF 1 MG/ML 10 ML AMP/VIAL INT SPINAL ONE (08:34)
[2020-02-10] MEDS ORDERED: LACTATED RINGER'S 500 ML IV PRN (08:34)
[2020-02-10] MEDS ORDERED: ePHEDrine sulfate 50 MG/ML AMP IV PRN (08:34)
[2020-02-10] MEDS ORDERED: NALOXONE HCL 1 MG in SODIUM CHLORIDE 0.9% 1000ML 1,000 ML IV PRN (08:34)
[2020-02-10] MEDS ORDERED: HYDROmorphone INJ 0.5 MG/0.5 ML SYR IV PRN (08:34)
[2020-02-10] MEDS ORDERED: ONDANSETRON INJ 2 MG/ML 2 ML VIAL IV PRN (08:34)
[2020-02-10] MEDS ORDERED: NALOXONE HCL 0.08 MG in SYRINGE 1.8 ML IV PRN (08:34)
[2020-02-10] MEDS ORDERED: DC INTRASPINAL MORPHINE SCH (08:45)
[2020-02-10] MEDS ORDERED: NO NARCOTICS OR SEDATIVES SCH (08:45)
[2020-02-10] MEDS ORDERED: SODIUM CHLORIDE 0.9% 1000ML 1,000 ML IV SCH (08:45)
[2020-02-10] MEDS ORDERED: SENNA 8.6 MG TAB PO PRN (09:03)
[2020-02-10] MEDS ORDERED: DIPHTHERIA/TETANUS/PERTUSSIS 0.5 ML SYR/VIAL IM ONE (09:03)
[2020-02-10] MEDS ORDERED: MAGNESIUM HYDROXIDE SUSP 30 ML UDC PO PRN (09:03)
[2020-02-10] MEDS ORDERED: HYDROCORTISONE ACETATE 25 MG SUPP PR PRN (09:03)
[2020-02-10] MEDS ORDERED: BENZOCAINE 20% AER SPR 82.5 GM CAN EXT PRN (09:03)
[2020-02-10] MEDS ORDERED: SUPERCREAM 0.870% 15 GM JAR EXT PRN (09:03)
--- NOTE | 2020-02-10 09:10 | Anesthesiology Progress Note ---
Date of Service February 10, 2020 Anesthesia Post Procedure Vital Signs Vital Signs: Temp Pulse Resp BP Pulse Ox 02/10/20 09:05 91 H 99 02/10/20 09:03 97 H 122/59 L 02/10/20 05:54 94 H 115/64 02/10/20 05:48 36.6 C 94 H 16 115/64 02/10/20 05:40 36.6 C 16 Transfer of Care Handoff Completed per policy Notes Mental Status: alert / awake / arousable and participated in evaluation Patient Amnestic to Procedure: No Nausea / Vomiting: adequately controlled Pain: adequately controlled Airway Patency, RR, SpO2: stable & adequate BP & HR: stable & adequate Hydration State: stable & adequate Neuraxial Anesthesia: was administered and sensory block is resolving Anesthetic Complications: no major complications apparent and Pt Satisfied with anesthetic care
--- NOTE | 2020-02-10 09:16 | Operative Report ---
PG Post Operative Report Pre & Post Diagnosis Operation Date: 02/10/20 07:30 Pre-Op Diagnosis: Term intrauterine . Desires repeat section. Post-Op Diagnosis: Same with of live female child at 0819. I identified the patient and participated in the time-out.: Yes Procedure Operation Date: 02/10/20 07:30 Actual Procedures Repeat section, with T-incision of the uterus Surgeon Carmen Carranza MD Consulting Solution Director Cara Chu RN Estimated Blood Loss 650 Findings Consistent with Post-Op Diagnosis Specimens Cord gas, Placenta, cord blood Anesthesia Type Spinal Complications none Disposition Accompanied Patient To Recovery: Yes Disposition: L&D Description of Procedure The patient was brought to the operating room and placed on the table in the supine position with a leftward tilt, then prepped and draped in standard sterile fashion. A hard time out was taken prior to proceeding. A pfannensteil incision was created sharply and carried down to the fascia using bovie el ectrocautery. The fascia was nicked and then extended using sheth scissors. The edges of the fascia were grasped with Remigio clamps and elevated, then sharply and bluntly dissected off the underlying rectus. The midline of the rectus was identified and bluntly . The peritoneum was bluntly entered, and this entry was extended using pressure from the surgeon's hands. The bladder retract or was placed and the lower uterine segment was examined and found to be well developed. A bladder flap was created and the retractor was replaced behind this flap to protect the bladder. A transverse lower uterine incision was then created, with final entry to the uterine cavity made in a blunt manner with the surgeon's finger. Clear amniotic fluid was encountered. The head was elevated to the incision. Initial fundal pressure did not result in delivery. A Kiwi cup was applied to the head and used to guide the head while fundal pressure was again applied, however delivery did not result, and the Kiwi was removed. A 1" T-extension was made using bandage scissors on the myometrium, and then fundal pressure was applied, and again delivery did not result. A Kiwi was placed once again on the head and delivery then resulted with mild fundal pressure. The infant immediately cried loudly. The cord was doubly clamped and cut, then the vigorous infant was taken to the warmer for recreation therapist care. The placenta was manually extracted, then the uterus was gently exteriorized from the maternal abdomen. The cavity was cleared of clot and debris using a dry lap sponge. The T-portion of the incision was repaired first, using 0-vicryl in two layers, the second being an imbricating baseball stitch. The angles of the transverse portion of the incision were identified with allis clamps, and the hysterotomy was then repaired in running locked fashion using 0-vicryl suture, followed by a second imbricating layer. Five grams of Karolyn were applied and pressure was held to ensure good hemostasis. The tubes and ovaries were examined and found to be normal bilaterally. The posterior gutter was irrigated and cleared of clot and debris. The uterus was then gently re-internalized to the abdomen. Lateral gutters were cleared of clot and debris using a damp lap sponge, and a final exam of the hysterotomy revealed good hemostasis. The rectus muscles were allowed to reapproximate naturally. The angle of the fascia was grasped with a Remigio clamp and the fascia was then repaired in running non-locked fashion with 1-vicryl suture. At the completion of repair, the fascia was examined and found to be free of any defect. The subcutaneous tissue was copiously irrigated and then reapproximated using 3-0 chromic. The skin was then closed using 4-0 monocryl in a running subcuticular fashion and a dermabond dressing was applied. The hastings was noted to be draining clear yellow urine as the patient was transferred back to her recovery room. I attest to the content of the Intraoperative Record and any orders documented therein. Any exceptions are noted below.
[2020-02-10 10:27] LABS: Base Excess Cord Arterial Bld -2.7 mEq/L (-9-1.8); CO2 Cord Arterial Blood 64 mmHg (39.1-73.5); HCO3 Cord Arterial Blood 26 mmol/L (19.7-28.5); PO2 Cord Arterial Blood 16 mmHg (4.1-31.7); pH Cord Arterial Blood 7.22 (7.1-7.38)
[2020-02-10 10:32] LABS: Base Excess Cord Venous Blood -2.4 mEq/L (-7.7-1.9); Cord Venous Blood HCO3 25 mmol/L (18.4-26.8); Cord Venous Blood PCO2 52 mmHg (30.4-57.2); Cord Venous Blood PO2 22 mmHg (14.1-43.3)
[2020-02-10 10:33] LABS: Oxygen Sat Cord Arterial Blood < 60.0 % (<60)
[2020-02-10 10:35] LABS: O2 Saturation Cord Venous Bld < 60.0 % (<68)
[2020-02-10] MEDS: KETOROLAC 30 MG/ML VIAL IV PRN ×2 (10:52→22:04)
[2020-02-10] MEDS: OXYTOCIN 30 UNITS in LACTATED RINGER'S 1,000 ML IV SCH ×2 (11:32→20:11)
[2020-02-10] MEDS: SIMETHICONE 80 MG CHEW PO SCH ×3 (12:56→20:12)
[2020-02-10] MEDS: diphenhydrAMINE 50 MG/ML VIAL IV PRN ×2 (12:56→22:05)
[2020-02-10] MEDS: DOCUSATE SODIUM 100 MG CAP PO SCH (20:12)
[2020-02-11] MEDS ORDERED: diphenhydrAMINE Capsule 25 MG CAP PO PRN (02:35)
[2020-02-11] MEDS ORDERED: diphenhydrAMINE 50 MG/ML VIAL IV PRN (02:35)
[2020-02-11] MEDS ORDERED: KETOROLAC 30 MG/ML VIAL IV PRN (02:35)
[2020-02-11] MEDS ORDERED: MEPERIDINE HCL 50 MG/ML CARP IV PRN (02:35)
[2020-02-11] MEDS ORDERED: PROMETHAZINE HCL 25 MG in SODIUM CHLORIDE 0.9% 50 ML IV PRN (02:35)
[2020-02-11] MEDS ORDERED: ONDANSETRON INJ 2 MG/ML 2 ML VIAL IV PRN (02:35)
[2020-02-11] MEDS: oxyCODONE/ACETAMINOPHEN 5mg/325mg TAB PO PRN ×3 (03:46→12:41)
[2020-02-11 06:39] LABS: Basophils # (auto) 0.02 K/uL (0-0.2); Basophils % (auto) 0.2 %; Eosinophils # (auto) 0.28 K/uL (0-0.5); Eosinophils % (auto) 2.2 %; Hematocrit (blood only) 30.6 % (37-47); Hemoglobin 9.9 g/dL (12.0-16.0); Immature Granulocytes # (auto) 0.06 K/uL (0.00-0.02); Immature Granulocytes % (auto) 0.5 %; Lymphocytes # (auto) 1.77 K/uL (1.2-3.4); Lymphocytes % (auto) 13.7 %; Mean Corpuscular Hemoglobin 27.7 pg (25-34); Mean Corpuscular Hgb Conc 32.4 g/dL (32-36); Mean Corpuscular Volume 85.5 fL (80-100); Mean Platelet Volume 9.8 fL (7.4-10.4); Monocytes # (auto) 0.78 K/uL (0.11-0.59); Monocytes % (auto) 6.1 %; Neutrophils # (auto) 9.97 K/uL (1.4-6.5); Neutrophils % (auto) 77.3 %; Platelet Count 259 K/uL (130-400); RDW Coefficient of Variation 13.5 % (11.5-14.5); Red Blood Count 3.58 M/uL (4.2-5.4); White Blood Count 12.88 K/uL (4.8-10.8)
--- NOTE | 2020-02-11 07:23 | Obstetrical Progress Note ---
Date of Service <Jey Williamson MD - Last Filed: 02/11/20 07:23> February 11, 2020 Assessment & Plan <Jey Williamson MD - Last Filed: 02/11/20 07:23> (1) delivery delivered: A/P: Maureen Baez is a 34 y/o female who is POD #1 following elective delivery at 39+3 weeks. * Patient feels well today; eating well, voiding well, ambulating well * Pain well-controlled with oxycodone/acetaminophen 2 tabs q4h prn and ibuprofen 600mg q6h prn * Routine postcesarean care: OOB, ambulation, diet progression as tolerated * After discharge, will have six-week follow-up with Dr. Carranza Subjective <Jey Williamson MD - Last Filed: 02/11/20 07:23> Ambulation: ambulating normally Voiding: no voiding problems Passing Gas:: Yes Diet Tolerance:: regular diet Lochia:: Eligio Baez is a 34 y/o female , POD #1 following elective delivery at 39+3 weeks. She reports feeling well overall this morning. Mild abdominal cramping and 4/10 pain well managed on analgesics. Voiding well, catheter removed last night. Tolerating meals overnight without difficulty. Patient has been able to ambulate some. + passing gas and - bowel movement. Has persistent lochia with some improvement this morning. Currently . Review of Systems Denies fever or chills. Denies shortness of breath or cough. Denies chest pain. Denies breast pain. Denies dysuria. Denies leg pain or leg swelling. Denies headache or changes in vision. Physical Exam <Jey Williamson MD - Last Filed: 02/11/20 07:23> General: alert, oriented, no acute distress Cardiac: regular rate and rhythm, no murmurs appreciated Respiratory: lungs clear to auscultation bilaterally a/p, no wheezes/rales/rhonchi, no increased work of breathing, symmetrical chest rise, no respiratory distress Abdomen: soft, mildly tender, nondistended, bowel sounds present Uterus: uterine fundus firm, palpable at the umbilicus, Surgical scar clean and healing well Lower extremities: no lower extremity edema or swelling, no deep calf pain, Live's negative bilaterally Results & Data ([facility]) <Jey Williamson MD - Last Filed: 02/11/20 07:23> Vital Signs (Past 12 Hours) Vital Signs Temp Pulse Resp BP Pulse Ox 02/11/20 03:30 36.6 C 102 H 18 107/72 96 02/11/20 02:15 16 92 02/11/20 01:40 16 91 02/11/20 00:10 16 92 02/10/20 23:15 36.5 C 90 16 105/76 93 02/10/20 22:05 16 96 02/10/20 21:10 16 94 02/10/20 20:15 16 95 02/10/20 19:20 36.4 C L 90 16 97/63 L 97 <Stone Farah MD - Last Filed: 02/11/20 07:56> Co-Signing Physician Notes Patient seen and evaluated and agree with the above findings and plan. Patient requesting discharge today. Patient meeting discharge criteria and will arrange for late afternoon discharge if doing well. Resident Activity Tracking <Jey Williamson MD - Last Filed: 02/11/20 07:23> Resident Involvement: Resident Care Provided Care Provided: OB Delivery
[2020-02-11] MEDS: IBUPROFEN 600 MG TAB PO PRN ×2 (07:50→12:40)
[2020-02-11] MEDS ORDERED: PRENATAL VITAMIN 1 TAB PO SCH (08:00)
[2020-02-11] MEDS ORDERED: FERROUS SULFATE 325 MG TAB PO SCH (08:00)
[2020-02-11] MEDS: SIMETHICONE 80 MG CHEW PO SCH ×2 (08:19→12:40)
[2020-02-11] MEDS: DOCUSATE SODIUM 100 MG CAP PO SCH (08:20)
[2020-02-11] MEDS ORDERED: CETIRIZINE HCL 10 MG TABLET PO SCH (09:00)
--- NOTE | 2020-02-12 08:09 | Discharge Summary ---
Date of Service February 12, 2020 Discharge Data Consultations 02/10/20 05:39 Consult Anesthesiology Stat Procedures Performed Operation Date: 02/10/20 07:30 Actual Procedures p Section in LD with of live female child at 0819 - Carmen Carranza MD Hospital Course (1) delivery delivered: Patient admitted for and underwent planned repeat section. Due to difficult extraction, a T-incison was made, and this was explained to the patient and FOB afterwards including discussion of impact on future pregnancies and the recommendation for all deliveries to be via going forward with consideration of gestational age at time of delivery. Her postop course was uncomplicated and she was discharged to home at her request, with plan for f/u at 6 weeks. Coding Level of Care Code None Diagnoses delivery delivered O82
== END 2020-02-11 16:28 | disposition home or self-care (01) | DRG 788 ==
LOC: 4S1 05:33 → 4S2 12:53 → EDSTATUS 02-14 07:30